=== PATIENT | male | born 1965 | race Caucasian/White ===

== ENCOUNTER → 2021-05-12 | Outpatient (CLI) | payer SELFPAY ==
[~2021-05-12] MED LIST: CLIN300C12 PO; HCTZ; LOSA50TA6 PO; MELO15TA14 PO; METO100T6; METOPROLOL; MTP50T PO; OXYC-12 PO
== END ==
LOC: LABNPT 06:43
PROVIDERS: ATTEND Internal Medicine Cardiovascular Disease
DX: Z53.9 Procedure and treatment not carried out, unspecified reason (principal)
CPT/HCPCS: 87635